=== PATIENT | female | born 2000 | race American Indian/Alaskan Native ===

== ENCOUNTER 2019-01-04 19:08 | Emergency (ER) | payer BC ==
[~2019-01-04] VITALS: Ht 162.6 cm; Wt 86.4 kg
[2019-01-04 19:12] VITALS: BP 114/60
--- NOTE | 2019-01-04 19:25 | NUR ---
pt had miscarriage at 6 weeks on 12/11, referred here by women's health specialists to get HCG blood sample due to high levels on hcg urine, vaginal U/S was negative
== END 2019-01-04 20:34 | disposition home or self-care (01) ==
LOC: ER 19:08
DX: O20.0 Threatened abortion (principal); Z88.5 Allergy status to narcotic agent; Z3A.01 Less than 8 weeks gestation of pregnancy
CPT/HCPCS: 36415; 84702; 99283